=== PATIENT | female | born 1970 | race Caucasian/White ===

== ENCOUNTER → 2024-02-11 10:53 | Outpatient (REF) | payer BC, SELFPAY | LOC: RAD 10:53 | PROVIDERS: ATTENDING PHYSICIAN Internal Medicine Endocrinology, Diabetes & Metabolism; REFERRING PHYSICIAN Internal Medicine | DX: E04.2 Nontoxic multinodular goiter (principal) | CPT/HCPCS: 76536 ==

== ENCOUNTER → 2024-04-08 07:22 | Outpatient (REF) | payer BC, SELFPAY | LOC: RAD 07:22 | PROVIDERS: ATTENDING PHYSICIAN Internal Medicine Endocrinology, Diabetes & Metabolism; FAMILY PHYSICIAN Internal Medicine | DX: E05.90 Thyrotoxicosis, unspecified without thyrotoxic crisis or storm (principal) | CPT/HCPCS: 78014; A9516 ==

== ENCOUNTER → 2025-01-15 09:26 | Outpatient (REF) | payer BC, SELFPAY | LOC: HWRAD 09:26 | PROVIDERS: ATTENDING PHYSICIAN Internal Medicine Endocrinology, Diabetes & Metabolism; FAMILY PHYSICIAN Family Medicine | DX: E04.2 Nontoxic multinodular goiter (principal) | CPT/HCPCS: 76536 ==